=== PATIENT | male | born 1965 | race Two or more races ===

== ENCOUNTER 2025-04-08 10:50 | Emergency (ER) | payer OTHER ==
[~2025-04-08] VITALS: Ht 162.6 cm; Wt 68.1 kg
[2025-04-08] MEDS: SODIUM CHLORIDE 0.9% 1,000 ML IV ONE (11:15)
[2025-04-08] MEDS: LORazepam 2MG/ML-1ML VIAL IV ONE (11:15)
--- NOTE | 2025-04-08 11:20 | ED.PDOC ---
History of Present Illness HPI Comments 59-year-old male presents with a chief complaint of dizziness, nausea, vomiting x onset this morning. Patient states that his dizziness is described as the "room is spinning" and is unable to keep his eyes open. Patient denies hitting his head prior to onset of symptoms. Patient mentions that he was doing his laundry when onset began. Patient took an ASA at home thinking it would help, but states he has had no relief. Chief Complaint: Dizziness Time Seen by MD: 11:00 Primary Care Provider: LUCIO Reviewed Notes: Medications, Allergies Allergies: Coded Allergies: Amoxicillin (Verified Allergy, Unknown, 07/10/10) Home Meds Active Scripts Meclizine HCl (Meclizine) 25 Mg Chw, 25 MG PO DAILY for 5 Days, #5 CHW Prov:INGA STEPHENSON MD 04/08/25 Information Source: Patient Mode of Arrival: Wheelchair Severity: Moderate Timing: Hours Duration: Since onset Prehospital treatment: None Past Medical History PAST MEDICAL HISTORY: Kidney Stones Surgical History (Other): RENAL STONES Family History Family History: Reviewed,noncontributory to illness Social History Smoker: Non-Smoker Alcohol: Denies ETOH Use Drugs: Denies Drug Use Lives In: Home Constitutional: denies: chills, diaphoresis, fatigue, fever, malaise, sweats, weakness, others EENTM: denies: blurred vision, double vision, ear bleeding, ear discharge, ear drainage, ear pain, ear ringing, eye pain, eye redness, hearing loss, mouth pain, mouth swelling, nasal discharge, nose bleeding, nose congestion, nose pain, photophobia, tearing, throat pain, throat swelling, voice changes, others Respiratory: denies: cough, hemoptysis, orthopnea, SOB at rest, shortness of breath, SOB with excertion, stridor, wheezing, others Cardiovascular: denies: chest pain, dizzy spells, diaphoresis, Dyspnea on exertion, edema, irregular heart beat, left arm pain, lightheadedness, palpitations, PND, syncope, others Gastrointestinal: reports: nausea, vomiting; denies: abdomen distended, abdominal pain, blood streaked bowels, constipated, diarrhea, dysphagia, difficulty swallowing, hematemesis, melena, poor appetite, poor fluid intake, rectal bleeding, rectal pain, others Genitourinary: denies: burning, dysuria, flank pain, frequency, hematuria, incontinence, penile discharge, penile sore, pain, testicle pain, testicle swelling, urgency, others Neurological: reports: dizziness; denies: fainting, headache, left sided numbness, left sided weakness, numbness, paresthesia, pre-existing deficit, right sided numbness, right sided weakness, seizure, speech problems, tingling, tremors, weakness, others Musculoskeletal: denies: back pain, gout, joint pain, joint swelling, muscle pain, muscle stiffness, neck pain, others Integumetry: denies: bruises, change in color, change in hair/nails, dryness, laceration, lesions, lumps, rash, wounds, others Allergic/Immunocompromised: denies: Difficulty Healing, Frequent Infections, Hives, Itching, others Hematologic/Lymphatic: denies: anemia, blood clots, easy bleeding, easy bruising, swollen glands, others Endocrine: denies: excessive hunger, excessive sweating, excessive thirst, excessive urination, flushing, intolerance to cold, intolerance to heat, unexplained weight gain, unexplained weight loss, others Psychiatric: denies: anxiety, bipolar disorder, depression, hopeless, panic disorder, schizophrenia, sleepless, suicidal, others All Other Systems: Reviewed and Negative Physical Exam General Appearance: Moderate Distress, Normal HEENT: Normal ENT Inspection, Pharynx Normal, TMs Normal Neck: Full Range of Motion, Non-Tender, Normal, Normal Inspection Respiratory: Chest Non-Tender, Lungs Clear, No Accessory Muscle Use, No Respiratory Distress, Normal Breath Sounds Cardiovascular: No Edema, No JVD, No Murmur, No Gallop, Normal Peripheral Pulses, Regular Rate/Rhythm Breast Exam: Deferred Gastrointestinal: No Organomegaly, Non Tender, No Pulsatile Mass, Normal Bowel Sounds, Soft Genitalia: Deferred Pelvic: Deferred Rectal: Deferred Extremities: No calf tenderness, Normal capillary refill, Normal inspection, Normal range of motion, Non-tender, No pedal edema Musculoskeletal : Apperance: Normal Neurologic: Alert, oss architect II-XII nml as Tested, No Motor Deficits, Normal Affect, Normal Mood, No Sensory Deficits Cerebellar Function: NOT DONE Reflexes: NOT DONE Skin: Dry, Normal Color, Warm Peripheral Pulses: 3+ Radial (R), 3+ Radial (L) Lymphatic: No Adenopathy Was a procedure done? Was a procedure done?: No Differential Dx Considerations may include: Autonomic disorder Electrolyte imbalance X-Ray, Labs, Meds, VS Vital Signs Date Time Temp Pulse Resp B/P (MAP) Pulse Ox O2 Delivery O2 Flow Rate FiO2 04/08/25 12:50 97.9 89 18 110/84 (93) 95 97.9 04/08/25 11:04 88 04/08/25 10:55 97.2 95 20 143/96 (112) 96 97.2 Lab Test 04/08/25 11:19 04/08/25 10:59 Range/Units White Blood Count 10.3 4.4-10.8 10^3/uL Red Blood Count 5.60 4.5-5.90 10^6/uL Hemoglobin 16.9 13.5-17.5 g/dL Hematocrit 49.3 41.0-53.0 % Mean Corpuscular Volume 88.1 80.0-100.0 fL Mean Corpuscular Hemoglobin 30.2 28.0-32.0 pg Mean Corpuscular Hemoglobin Concent 34.3 32.0-36.0 g/dL Red Cell Distribution Width 13.7 11.8-14.3 % Platelet Count 265 140-450 10^3/uL Mean Platelet Volume 8.0 6.9-10.8 fL Neutrophils (%) (Auto) 71.4 37.0-80.0 % Lymphocytes (%) (Auto) 20.3 10.0-50.0 % Monocytes (%) (Auto) 6.1 0.0-12.0 % Eosinophils (%) (Auto) 1.6 0.0-7.0 % Basophils (%) (Auto) 0.6 0.0-2.0 % Neutrophils # (Auto) 7.3 1.6-8.6 10 ^3/uL Lymphocytes # (Auto) 2.1 0.4-5.4 10 ^3/uL Monocytes # (Auto) 0.6 0-1.3 10 ^3/uL Eosinophils # (Auto) 0.2 0-0.8 10 ^3/uL Basophils # (Auto) 0.1 0-0.2 10 ^3/uL Nucleated Red Blood Cells 0.2 % Sodium Level 138 136-145 mmol/L Potassium Level 3.8 3.5-5.1 mmol/L Chloride Level 107 98-107 mmol/L Carbon Dioxide Level 18 L 20-31 mmol/L Anion Gap 13 5-15 Blood Urea Nitrogen 19 9-23 mg/dL Creatinine 1.12 0.700-1.30 mg/dL Glomerular Filtration Rate Calc 75 >90 mL/min BUN/Creatinine Ratio 17.0 10.0-20.0 Serum Glucose 155 H 74-106 mg/dL Calcium Level 11.2 H 8.7-10.4 mg/dL Troponin I High Sensitivity 3 L </=54 ng/L POC Glucose 136 H 70-106 mg/dl Patient alert. Complaining of dizziness. Vitals stable. Answering questions. Establish intravenous access. Was given fluids. Was given Ativan. He is unable to open his eyes without being dizzy. Explained to the patient that he possibly has autonomic disorder we will continue with fluids. Continue monitoring. Time of 1ST Reevaluation: 11:00 (EXPLAINED TO THE PATIENT THAT THEY MAY BE STAYING WITH US IN THE HOSPITAL, BUT IF STABLE FOR DISCHARGE, THEY WILL BE NOTIFIED AND SENT HOME.) Reevaluation 1ST: Unchanged Time of 2ND Reevaluation: 11:30 Reevaluation 2ND: Unchanged Patient Education/Counseling: Diagnosis, Treatment Family Education/Counseling: Diagnosis, Treatment Departure 1 Departure Time of Disposition: 11:32 Impression: Primary Impression: Autonomic disorder Disposition: 01 HOME / SELF CARE / HOMELESS Condition: Good e-Prescriptions Meclizine HCl (Meclizine) 25 Mg Chw 25 MG PO DAILY for 5 Days, #5 CHW Prov: INGA STEPHENSON MD 04/08/25 Discharged With: Self Comments 13:02 - SPOKE WITH PATIENT ABOUT HIS CT HEAD RESULTS AND THAT THEY WERE NEGATIVE FOR ACUTE FINDINGS. PATIENT MENTIONS THAT HE HAD YET TO RECEIVE HIS FLUIDS AND MEDICATIONS FROM THE TREATMENT NURSE. PATIENT WAS EDUCATED ON NEEDING THE TREATMENT TO FEEL RELIEF THEN WOULD BE ABLE TO BE DISCHARGED HOME. PATIENT IS IN AGREEMENT WITH THE TREATMENT PLAN. Critical Care Note Critical Care Time?: No Stability Stability form required: No Heart Score Heart Score: Heart Score Response (Comments) Value History Slightly Suspicious 0 EKG Normal 0 Age 45-64 1 Risk Factors 1 or 2 risk factors 1 Troponin Normal limit 0 Total 2 I personally scribed for INGA STEPHENSON MD ([email or web address]) on 04/08/25 at 11:20. Electronically submitted by Samuel Javier ([email or web address]). I personally scribed for INGA STEPHENSON MD ([email or web address]) on 04/08/25 at 13:07. Electronically submitted by Samuel Javier ([email or web address]). INGA STEPHENSON MD April 08, 2025 11:20
[2025-04-08 11:33] LABS: Basophils # (auto) 0.1 10 ^3/uL (0-0.2); Basophils % (auto) 0.6 % (0.0-2.0); Eosinophils # (auto) 0.2 10 ^3/uL (0-0.8); Eosinophils % (auto) 1.6 % (0.0-7.0); Hematocrit 49.3 % (41.0-53.0); Hemoglobin 16.9 g/dL (13.5-17.5); Lymphocytes # (auto) 2.1 10 ^3/uL (0.4-5.4); Lymphocytes % (auto) 20.3 % (10.0-50.0); Mean Corpuscular Hemoglobin 30.2 pg (28.0-32.0); Mean Corpuscular Hgb Conc. 34.3 g/dL (32.0-36.0); Mean Corpuscular Volume 88.1 fL (80.0-100.0); Monocytes # (auto) 0.6 10 ^3/uL (0-1.3); Monocytes % (auto) 6.1 % (0.0-12.0); Neutrophils # (auto) 7.3 10 ^3/uL (1.6-8.6); Neutrophils % (auto) 71.4 % (37.0-80.0); Nucleated Red Blood Cells % 0.2 %; Platelet Count (auto) 265 10^3/uL (140-450); Red Cell Distribution Width 13.7 % (11.8-14.3); White Blood Cell 10.3 10^3/uL (4.4-10.8)
[2025-04-08 11:43] LABS: Chloride 107 mmol/L (98-107); Potassium 3.8 mmol/L (3.5-5.1); Sodium 138 mmol/L (136-145)
[2025-04-08 11:44] LABS: Anion Gap 13 (5-15)
[2025-04-08 11:46] LABS: Calcium 11.2 mg/dL (8.7-10.4); Carbon Dioxide 18 mmol/L (20-31)
[2025-04-08 11:50] LABS: Blood Urea Nitrogen 19 mg/dL (9-23)
--- NOTE | 2025-04-08 11:50 | DVH ---
EXAM: CT HEAD WITHOUT CONTRAST HISTORY: dizzy COMPARISON: None TECHNIQUE: Axial images of the head were obtained and reformatted in coronal and sagittal planes. All CT scans at this medical facility are performed using dose modulation techniques as appropriate t o a performed exam including the following: Automated exposure control was utilized; adjustment of th e MA and/or KV according to patient size; and use of iterative reconstruction technique. CT Dose: CTDI volume is 55 mGy. Dose-length product is 1092 mGy*cm FINDINGS: There is no evidence of acute intracranial hemorrhage, mass, mass effect midline shift. There is no h ydrocephalus or extra-axial fluid collection. Aldrich-white matter differentiation is maintained. The visualized paranasal sinuses and mastoid air cells are clear. The calvarium is intact. IMPRESSION: 1. No acute intracranial process. HS:Y
[2025-04-08 11:51] LABS: Glucose 155 mg/dL (74-106)
[2025-04-08] MEDS ORDERED: MECL25CH38 PO (12:30)
[2025-04-08 12:50] VITALS: BP 110/84; PULSE 89; RESP 18; TEMP 97.9; O2SAT 95
--- NOTE | 2025-04-08 13:11 | ECG ---
[facility] Test Date: 2025-04-08 Test Time: 11:04:45 Pat Name: OLAMIDE LOGAN Department: ER Room: Gender: M Squirrel Man: KRISTINA : 1965 Requested By: INGA STEPHENSON Order Number: [id number] Reading MD: Steven Yuan Measurements Intervals [place] Rate: 88 P: 16 IA: 149 QRS: -18 QRSD: 91 T: -20 QT: 347 QTc: 420 Interpretive Statements Sinus rhythm Borderline left axis deviation Nonspecific T abnormalities, lateral leads Electronically Signed On 04-09-2025 12:48:26 PDT by Steven Yuan Please click the below link to view image of tracing.
== END 2025-04-08 14:30 | disposition home or self-care (01) ==
LOC: ER 10:50
DX: G90.9 Disorder of the autonomic nervous system, unspecified (principal); Z87.442 Personal history of urinary calculi; Z79.899 Other long term (current) drug therapy; Z88.1 Allergy status to other antibiotic agents
CPT/HCPCS: 36415; 70450; 80048; 82947; 84484; 85025; 93005; 96361; 96374; 99285; J2060; J7030; 82962